=== PATIENT | male | born 1940 | race African-American/Black ===

== ENCOUNTER 2017-10-03 14:06 | Emergency (ER) | payer MEDICARE ==
[~2017-10-03] VITALS: Ht 190.5 cm; Wt 90.4 kg
[~2017-10-03 14:06] MED LIST changes: -ISOS1POW2 PO
[2017-10-03 14:55] LABS: HEMATOCRIT 34.7 % (39.2-51.8); HEMOGLOBIN 11.7 g/dL (13.7-18.0); WHITE BLOOD COUNT 6.1 x10^3/uL (3.4-10)
[2017-10-03 15:07] LABS: BLOOD UREA NITROGEN 18 mg/dL (7-18)
[2017-10-03] MEDS ORDERED: ISOS1POW2 PO (15:27)
[2017-10-03 15:43] VITALS: BP 162/69
== END 2017-10-03 16:28 | disposition home or self-care (01) ==
LOC: ED 15:45
DX: M54.12 Radiculopathy, cervical region (principal); E78.5 Hyperlipidemia, unspecified; K21.9 Gastro-esophageal reflux disease without esophagitis; M19.90 Unspecified osteoarthritis, unspecified site; I11.9 Hypertensive heart disease without heart failure; I25.10 Atherosclerotic heart disease of native coronary artery without angina pectoris; Z85.46 Personal history of malignant neoplasm of prostate
CPT/HCPCS: 36415; 80048; 82040; 82330; 85025; 99284

== ENCOUNTER → 2017-10-03 | Outpatient (CLI) | payer MEDICARE ==
[~2017-10-03] MED LIST: AMLO10TA2 PO; AMLODIPINE PO; ANTIINFLAMMATORY; APIX5TAB PO; ASPI-621 PO; ASPI325T17 PO; ATOR20TA PO; CLON-364 PO; DEXL30CA2 PO; DICL100T4 PO; DOCU-131 PO; FERR325T18 PO; HYDR-3237 PO; ISOS1POW2 PO; ISOS30TA PO; LOSA25TA2 PO; METH10TA6 PO; METH500T7 PO; METO50TA82 PO; MORP-52 PO; NITR0.4T SL; TICA90TA PO
[2017-10-03 14:04] LABS: HEMATOCRIT 35.5 % (39.2-51.8); HEMOGLOBIN 11.9 g/dL (13.7-18.0); WHITE BLOOD COUNT 6.4 x10^3/uL (3.4-10)
[2017-10-03 14:16] LABS: ASPARTATE AMINO TRANSFERASE 14 U/L (15-37); BLOOD UREA NITROGEN 18 mg/dL (7-18)
== END | disposition home or self-care (01) ==
LOC: LAB 13:51
PROVIDERS: ATTEND Internal Medicine
DX: E78.2 Mixed hyperlipidemia (principal); I25.10 Atherosclerotic heart disease of native coronary artery without angina pectoris; I10 Essential (primary) hypertension
CPT/HCPCS: 36415; 80053; 80061; 85025

== ENCOUNTER 2017-10-22 10:15 | Inpatient (IN) | payer MEDICARE ==
[~2017-10-22] VITALS: Ht 182.9 cm; Wt 92.1 kg
[~2017-10-22 10:15] MED LIST changes: +ISOS1POW2 PO
[2017-10-22 11:04] LABS: HEMATOCRIT 34.4 % (39.2-51.8); HEMOGLOBIN 11.4 g/dL (13.7-18.0); WHITE BLOOD COUNT 4.4 x10^3/uL (3.4-10)
[2017-10-22 11:14] LABS: BLOOD UREA NITROGEN 19 mg/dL (7-18)
[2017-10-22 11:32] LABS: IS PT STATUS REG ER OR PRE ER? YES
[2017-10-22] MEDS ORDERED: GADOBUTROL 10 MMOL/10 ML PFS ONE (11:45)
[2017-10-22] MEDS ORDERED: LEVETIRACETAM 1,000 MG in SODIUM CHLORIDE 0.9% 100 ML IV ONE (13:00)
[2017-10-22] MEDS ORDERED: DEXAMETHASONE 4 MG/ML, 1ML IVPush ONE (13:00)
[2017-10-22] MEDS ORDERED: DEXAMETHASONE 4 MG/ML, 5ML ONE (13:29)
[2017-10-22] MEDS ORDERED: ENOXAPARIN 40 MG/0.4 ML SQ SCH (14:30)
[2017-10-22] MEDS ORDERED: ONDANSETRON ODT 4 MG PO PRN (14:30)
[2017-10-22] MEDS ORDERED: ONDANSETRON 2MG/ML, 2ML IVPush PRN (14:30)
[2017-10-22] MEDS ORDERED: GUAIFENESIN/DM 200-20MG, 10ML UDC PO PRN (14:30)
[2017-10-22] MEDS ORDERED: POLYETHYLENE GLYCOL 17 GM PACKET PO PRN (14:30)
[2017-10-22] MEDS ORDERED: morphine SULFATE 10 MG/ML, 1ML IVPush PRN (14:30)
[2017-10-22] MEDS ORDERED: LABETALOL 5MG/ML, 20ML IVPush PRN (14:30)
[2017-10-22] MEDS ORDERED: HYDROcodone/APAP 5/325 TABLET PO PRN (14:30)
[2017-10-22 14:53] VITALS: BP 149/92
[2017-10-22] MEDS: SODIUM CHLORIDE 0.9% 1,000 ML IV SCH (15:21)
[2017-10-22] MEDS: DEXAMETHASONE 4 MG/ML, 1ML IVPush SCH ×2 (17:03→23:17)
[2017-10-22 18:45] VITALS: BP 167/77
[2017-10-22] MEDS: DOCUSATE 100 MG CAPSULE PO SCH (20:50)
[2017-10-22] MEDS: METOPROLOL TARTRATE 50 MG TABLET PO SCH (20:50)
[2017-10-22] MEDS: APIXABAN 5 MG TABLET PO SCH (20:52)
[2017-10-22] MEDS ORDERED: LEVETIRACETAM 100 MG/ML, 5ML IV SCH (21:00)
[2017-10-23 00:58] VITALS: BP 152/85
[2017-10-23] MEDS: LEVETIRACETAM 500 MG in SODIUM CHLORIDE 0.9% 100 ML IV SCH ×2 (01:40→13:32)
[2017-10-23] MEDS: DEXAMETHASONE 4 MG/ML, 1ML IVPush SCH ×4 (05:09→23:06)
[2017-10-23 06:44] VITALS: BP 178/80
[2017-10-23] MEDS: SODIUM CHLORIDE 0.9% 1,000 ML IV SCH ×2 (08:19→17:04)
[2017-10-23] MEDS: DOCUSATE 100 MG CAPSULE PO SCH ×2 (08:19→20:56)
[2017-10-23] MEDS: METOPROLOL TARTRATE 50 MG TABLET PO SCH ×2 (08:20→20:57)
[2017-10-23] MEDS: PANTOPROZOLE 40MG TABLET PO SCH (08:20)
[2017-10-23] MEDS: APIXABAN 5 MG TABLET PO SCH (08:20)
[2017-10-23] MEDS: SENNA/DOCUSATE TABLET PO SCH (08:23)
[2017-10-23] MEDS: DIPHENHYDRAMINE 25 MG CAPSULE PO PRN (10:00)
[2017-10-23] MEDS ORDERED: DIPHENHYDRAMINE 25 MG CAPSULE ONE (10:30)
[2017-10-23 11:16] LABS: ASPARTATE AMINO TRANSFERASE 12 U/L (15-37); BLOOD UREA NITROGEN 28 mg/dL (7-18)
[2017-10-23 11:24] LABS: HEMOGLOBIN 11.8 g/dL (13.7-18.0); WHITE BLOOD COUNT 14.8 x10^3/uL (3.4-10)
[2017-10-23 13:10] VITALS: BP 149/68
[2017-10-23] MEDS ORDERED: DIPHENHYDRAMINE 25 MG CAPSULE PO PRN (17:00)
[2017-10-23] MEDS ORDERED: MAGNESIUM SULFATE PMX 2GM/50ML 50 ML IV ONE (18:00)
[2017-10-23] MEDS: HEPARIN 5,000 UNITS/ML, 1ML SQ SCH (18:05)
[2017-10-23 18:31] LABS: IS PT STATUS REG ER OR PRE ER? NO
[2017-10-23 20:30] VITALS: BP 144/73
[2017-10-23 23:42] LABS: IS PT STATUS REG ER OR PRE ER? NO
[2017-10-24 01:09] VITALS: BP 158/87
[2017-10-24] MEDS: HEPARIN 5,000 UNITS/ML, 1ML SQ SCH ×3 (01:30→17:37)
[2017-10-24] MEDS: LEVETIRACETAM 500 MG in SODIUM CHLORIDE 0.9% 100 ML IV SCH ×2 (01:30→13:50)
[2017-10-24 04:53] LABS: HEMATOCRIT 33.4 % (39.2-51.8); HEMOGLOBIN 11.1 g/dL (13.7-18.0); WHITE BLOOD COUNT 16.4 x10^3/uL (3.4-10)
[2017-10-24 05:01] LABS: IS PT STATUS REG ER OR PRE ER? NO
[2017-10-24] MEDS: DEXAMETHASONE 4 MG/ML, 1ML IVPush SCH ×4 (05:02→23:09)
[2017-10-24 05:05] LABS: ASPARTATE AMINO TRANSFERASE 23 U/L (15-37); BLOOD UREA NITROGEN 30 mg/dL (7-18)
[2017-10-24 06:54] VITALS: BP 161/82
[2017-10-24] MEDS ORDERED: SODIUM CHLORIDE 0.9% 1,000 ML IV SCH (07:30)
[2017-10-24] MEDS ORDERED: REGADENOSON 0.4 MG/5 ML SYRINGE ONE (08:07)
[2017-10-24] MEDS ORDERED: hydrALAzine 20 MG/ML, 1ML ONE (10:08)
[2017-10-24] MEDS ORDERED: hydrALAzine 20 MG/ML, 1ML IV PRN (10:30)
[2017-10-24 11:28] VITALS: BP 159/83
[2017-10-24] MEDS: SENNA/DOCUSATE TABLET PO SCH (11:29)
[2017-10-24] MEDS: DOCUSATE 100 MG CAPSULE PO SCH ×2 (11:30→23:09)
[2017-10-24] MEDS: PANTOPROZOLE 40MG TABLET PO SCH (11:30)
[2017-10-24] MEDS: AMLODIPINE 5 MG TABLET PO SCH (11:30)
[2017-10-24 13:12] VITALS: BP 167/76
[2017-10-24 19:10] VITALS: BP 159/72
[2017-10-24] MEDS: METOPROLOL TARTRATE 25 MG TABLET PO SCH (23:09)
[2017-10-25 01:20] VITALS: BP 164/65
[2017-10-25] MEDS: LEVETIRACETAM 500 MG in SODIUM CHLORIDE 0.9% 100 ML IV SCH ×2 (01:46→15:00)
[2017-10-25] MEDS: HEPARIN 5,000 UNITS/ML, 1ML SQ SCH ×3 (01:46→16:58)
[2017-10-25] MEDS: DEXAMETHASONE 4 MG/ML, 1ML IVPush SCH ×4 (06:10→23:50)
[2017-10-25 07:33] VITALS: BP 161/83
[2017-10-25] MEDS: AMLODIPINE 5 MG TABLET PO SCH (08:04)
[2017-10-25] MEDS: DOCUSATE 100 MG CAPSULE PO SCH ×2 (08:04→21:08)
[2017-10-25] MEDS: SENNA/DOCUSATE TABLET PO SCH (08:04)
[2017-10-25] MEDS: METOPROLOL TARTRATE 25 MG TABLET PO SCH ×2 (08:05→21:00)
[2017-10-25 08:37] LABS: HEMATOCRIT 34.4 % (39.2-51.8); HEMOGLOBIN 11.4 g/dL (13.7-18.0); WHITE BLOOD COUNT 14.1 x10^3/uL (3.4-10)
[2017-10-25 08:48] LABS: BLOOD UREA NITROGEN 30 mg/dL (7-18)
[2017-10-25] MEDS: PANTOPROZOLE 40MG TABLET PO SCH (09:48)
[2017-10-25 13:46] VITALS: BP 172/81
[2017-10-25 14:26] VITALS: BP 156/70
[2017-10-25 19:10] VITALS: BP 158/78
[2017-10-26 01:12] VITALS: BP 171/81
[2017-10-26] MEDS: LEVETIRACETAM 500 MG in SODIUM CHLORIDE 0.9% 100 ML IV SCH ×2 (02:12→14:03)
[2017-10-26] MEDS: DEXAMETHASONE 4 MG/ML, 1ML IVPush SCH ×3 (04:52→16:07)
[2017-10-26 04:56] LABS: HEMATOCRIT 33.9 % (39.2-51.8); HEMOGLOBIN 11.2 g/dL (13.7-18.0); WHITE BLOOD COUNT 11.1 x10^3/uL (3.4-10)
[2017-10-26 05:05] LABS: BLOOD UREA NITROGEN 25 mg/dL (7-18)
[2017-10-26 07:45] VITALS: BP 187/80
[2017-10-26 07:47] VITALS: BP 182/86
[2017-10-26] MEDS: D5%-0.45% NACL 1,000 ML IV SCH (08:04)
[2017-10-26] MEDS: AMLODIPINE 5 MG TABLET PO SCH (08:09)
[2017-10-26] MEDS: DOCUSATE 100 MG CAPSULE PO SCH ×2 (08:09→21:00)
[2017-10-26] MEDS: SENNA/DOCUSATE TABLET PO SCH (08:09)
[2017-10-26] MEDS: PANTOPROZOLE 40MG TABLET PO SCH (08:10)
[2017-10-26] MEDS: METOPROLOL TARTRATE 25 MG TABLET PO SCH (08:10)
[2017-10-26] MEDS: LISINOPRIL 10 MG TABLET PO SCH (10:14)
[2017-10-26] MEDS: ISOSORBIDE MONONITRATE ER 30 MG TABLET PO SCH (10:14)
[2017-10-26 14:08] VITALS: BP 154/77
[2017-10-26] MEDS: DIPHENHYDRAMINE 25 MG CAPSULE PO PRN (16:15)
[2017-10-26] MEDS ORDERED: GADOBUTROL 10 MMOL/10 ML PFS ONE (16:40)
[2017-10-26] MEDS ORDERED: FENTANYL PF 250 MCG/5ML ONE (18:43)
[2017-10-26] MEDS ORDERED: PROPOFOL 10 MG/ML, 20ML ONE (18:44)
[2017-10-26] MEDS ORDERED: ROCURONIUM 10 MG/ML,10ML ONE (18:44)
[2017-10-26] MEDS ORDERED: GLYCOPYRROLATE 0.4 MG/2 ML, 2ML ONE ×2 (18:45→22:38)
[2017-10-26] MEDS ORDERED: NEOSTIGMINE 1 MG/ML, 10ML ONE (18:45)
[2017-10-26] MEDS ORDERED: CEFAZOLIN 1,000 MG ONE ×2 (18:54)
[2017-10-26] MEDS ORDERED: SODIUM CHLORIDE 0.9% PF 10ML ONE (18:54)
[2017-10-26] MEDS ORDERED: LABETALOL 5MG/ML, 20ML IV PRN (20:00)
[2017-10-26] MEDS ORDERED: hydrALAzine 20 MG/ML, 1ML IV PRN (20:00)
[2017-10-26] MEDS ORDERED: OXYcodone 5 MG/5 ML ORAL.SOL UDC PO PRN (20:00)
[2017-10-26] MEDS ORDERED: ONDANSETRON 2MG/ML, 2ML IVPush PRN (20:00)
[2017-10-26] MEDS ORDERED: MEPERIDINE/PF 25MG/0.5ML IVPush PRN (20:00)
[2017-10-26] MEDS ORDERED: HYDROmorphone 1 MG/ML, 1ML IV PRN (20:00)
[2017-10-26] MEDS ORDERED: PROMETHAZINE 25 MG/ML, 1ML IV PRN (20:00)
[2017-10-26] MEDS ORDERED: BUPIVACAINE/PF 0.5% ONE (20:07)
[2017-10-26] MEDS ORDERED: BACITRACIN 50,000 UNIT ONE (20:08)
[2017-10-26] MEDS ORDERED: EPINEPHRINE 1 MG/ML, 1ML ONE (20:08)
[2017-10-26] MEDS ORDERED: THROMBIN 5,000 UNIT VIAL TP ONE (20:08)
[2017-10-26] MEDS ORDERED: BACITRACIN OINT 500U/GM, 15 GM ONE (20:08)
[2017-10-26] MEDS ORDERED: OXYcodone 5 MG/5 ML ORAL.SOL UDC ONE (22:22)
[2017-10-26] MEDS ORDERED: FENTANYL PF 100 MCG/2ML ONE (22:22)
[2017-10-26] MEDS: FENTANYL PF 100 MCG/2ML IV PRN ×2 (22:25→22:53)
[2017-10-26] MEDS ORDERED: hydrALAzine 20 MG/ML, 1ML ONE (22:38)
[2017-10-27] MEDS: METOPROLOL TARTRATE 25 MG TABLET PO SCH (00:02)
[2017-10-27] MEDS ORDERED: HYDROcodone/APAP 5/325 TABLET PO PRN (00:27)
[2017-10-27] MEDS: DEXAMETHASONE 4 MG/ML, 1ML IVPush SCH ×5 (00:58→23:48)
[2017-10-27] MEDS: LEVETIRACETAM 500 MG in SODIUM CHLORIDE 0.9% 100 ML IV SCH ×2 (02:14→13:14)
[2017-10-27] MEDS: D5%-0.45% NACL 1,000 ML IV SCH ×2 (02:14→23:48)
[2017-10-27 04:00] VITALS: BP 157/66
[2017-10-27 05:04] LABS: HEMATOCRIT 37.7 % (39.2-51.8); HEMOGLOBIN 12.5 g/dL (13.7-18.0); WHITE BLOOD COUNT 14.7 x10^3/uL (3.4-10)
[2017-10-27 05:05] LABS: BLOOD UREA NITROGEN 29 mg/dL (7-18)
[2017-10-27 05:08] LABS: ASPARTATE AMINO TRANSFERASE 32 U/L (15-37)
[2017-10-27] MEDS: AMLODIPINE 5 MG TABLET PO SCH (08:45)
[2017-10-27] MEDS: DOCUSATE 100 MG CAPSULE PO SCH ×2 (08:45→21:13)
[2017-10-27] MEDS: LISINOPRIL 10 MG TABLET PO SCH (08:45)
[2017-10-27] MEDS: PANTOPROZOLE 40MG TABLET PO SCH (08:45)
[2017-10-27] MEDS: ISOSORBIDE MONONITRATE ER 30 MG TABLET PO SCH (08:45)
[2017-10-27] MEDS: ACETAMINOPHEN 325 MG TABLET PO PRN ×3 (08:49→23:48)
[2017-10-27] MEDS: SENNA/DOCUSATE TABLET PO SCH (08:50)
[2017-10-27 09:00] VITALS: BP 169/75
[2017-10-27 14:27] VITALS: BP 137/73
[2017-10-27 18:55] VITALS: BP 114/56
[2017-10-28] MEDS: LEVETIRACETAM 500 MG in SODIUM CHLORIDE 0.9% 100 ML IV SCH ×2 (02:37→13:54)
[2017-10-28 02:39] VITALS: BP 126/55
[2017-10-28 06:23] LABS: BLOOD UREA NITROGEN 32 mg/dL (7-18)
[2017-10-28] MEDS: DEXAMETHASONE 4 MG/ML, 1ML IVPush SCH ×3 (06:27→18:10)
[2017-10-28 06:30] LABS: HEMOGLOBIN 11.4 g/dL (13.7-18.0); WHITE BLOOD COUNT 11.8 x10^3/uL (3.4-10)
[2017-10-28 07:08] VITALS: BP 158/85
[2017-10-28] MEDS: SENNA/DOCUSATE TABLET PO SCH (08:40)
[2017-10-28] MEDS: DOCUSATE 100 MG CAPSULE PO SCH ×2 (08:42→19:58)
[2017-10-28] MEDS: ISOSORBIDE MONONITRATE ER 30 MG TABLET PO SCH (08:42)
[2017-10-28] MEDS: ACETAMINOPHEN 325 MG TABLET PO PRN ×2 (08:43→16:43)
[2017-10-28] MEDS: PANTOPROZOLE 40MG TABLET PO SCH (08:43)
[2017-10-28] MEDS: LISINOPRIL 10 MG TABLET PO SCH (08:43)
[2017-10-28] MEDS: AMLODIPINE 5 MG TABLET PO SCH (08:43)
[2017-10-28 12:58] VITALS: BP 108/57
[2017-10-28 19:29] VITALS: BP 133/53
[2017-10-28] MEDS: D5%-0.45% NACL 1,000 ML IV SCH (19:45)
[2017-10-29] MEDS: DEXAMETHASONE 4 MG/ML, 1ML IVPush SCH ×4 (00:19→18:11)
[2017-10-29 00:51] VITALS: BP 155/77
[2017-10-29] MEDS: LEVETIRACETAM 500 MG in SODIUM CHLORIDE 0.9% 100 ML IV SCH ×2 (01:59→13:58)
[2017-10-29 05:05] LABS: HEMATOCRIT 32.5 % (39.2-51.8); HEMOGLOBIN 10.7 g/dL (13.7-18.0); WHITE BLOOD COUNT 13.2 x10^3/uL (3.4-10)
[2017-10-29 05:22] LABS: BLOOD UREA NITROGEN 30 mg/dL (7-18)
[2017-10-29 07:41] VITALS: BP 177/78
[2017-10-29] MEDS: AMLODIPINE 5 MG TABLET PO SCH (08:12)
[2017-10-29] MEDS: PANTOPROZOLE 40MG TABLET PO SCH (08:12)
[2017-10-29] MEDS: ISOSORBIDE MONONITRATE ER 30 MG TABLET PO SCH (08:12)
[2017-10-29] MEDS: SENNA/DOCUSATE TABLET PO SCH (08:12)
[2017-10-29] MEDS: LISINOPRIL 10 MG TABLET PO SCH (08:13)
[2017-10-29] MEDS: DOCUSATE 100 MG CAPSULE PO SCH ×2 (08:13→21:12)
[2017-10-29] MEDS: ACETAMINOPHEN 325 MG TABLET PO PRN ×2 (09:29→18:35)
[2017-10-29 12:16] VITALS: BP 153/63
[2017-10-29] MEDS: ENOXAPARIN 40 MG/0.4 ML SQ SCH (14:00)
[2017-10-29] MEDS: D5%-0.45% NACL 1,000 ML IV SCH (16:07)
[2017-10-29 19:04] VITALS: BP 152/74
[2017-10-30] MEDS: DEXAMETHASONE 4 MG/ML, 1ML IVPush SCH ×4 (00:05→18:22)
[2017-10-30] MEDS: LEVETIRACETAM 500 MG in SODIUM CHLORIDE 0.9% 100 ML IV SCH ×2 (01:35→15:08)
[2017-10-30 01:38] VITALS: BP 160/70
[2017-10-30 04:16] LABS: HEMATOCRIT 32.2 % (39.2-51.8); HEMOGLOBIN 10.7 g/dL (13.7-18.0); WHITE BLOOD COUNT 14.1 x10^3/uL (3.4-10)
[2017-10-30 04:22] LABS: BLOOD UREA NITROGEN 27 mg/dL (7-18)
[2017-10-30 07:00] VITALS: BP 162/83
[2017-10-30] MEDS: AMLODIPINE 5 MG TABLET PO SCH (08:13)
[2017-10-30] MEDS: DOCUSATE 100 MG CAPSULE PO SCH ×2 (08:13→20:44)
[2017-10-30] MEDS: ISOSORBIDE MONONITRATE ER 30 MG TABLET PO SCH (08:14)
[2017-10-30] MEDS: PANTOPROZOLE 40MG TABLET PO SCH (08:14)
[2017-10-30] MEDS: SENNA/DOCUSATE TABLET PO SCH (08:14)
[2017-10-30] MEDS: LISINOPRIL 10 MG TABLET PO SCH (08:15)
[2017-10-30] MEDS: ACETAMINOPHEN 325 MG TABLET PO PRN ×2 (08:26→17:10)
[2017-10-30] MEDS: ENOXAPARIN 40 MG/0.4 ML SQ SCH (11:37)
[2017-10-30] MEDS: D5%-0.45% NACL 1,000 ML IV SCH (12:30)
[2017-10-30 14:24] VITALS: BP 129/71
[2017-10-30 19:16] VITALS: BP 157/79
[2017-10-31] MEDS: DEXAMETHASONE 4 MG/ML, 1ML IVPush SCH ×3 (00:53→11:59)
[2017-10-31] MEDS: LEVETIRACETAM 500 MG in SODIUM CHLORIDE 0.9% 100 ML IV SCH ×2 (00:53→14:10)
[2017-10-31 04:27] VITALS: BP 178/82
[2017-10-31 04:41] LABS: HEMATOCRIT 32.9 % (39.2-51.8); HEMOGLOBIN 10.9 g/dL (13.7-18.0); WHITE BLOOD COUNT 13.8 x10^3/uL (3.4-10)
[2017-10-31 04:45] LABS: BLOOD UREA NITROGEN 24 mg/dL (7-18)
[2017-10-31 07:44] VITALS: BP 172/85
[2017-10-31 07:45] VITALS: BP 173/81
[2017-10-31] MEDS: DOCUSATE 100 MG CAPSULE PO SCH ×2 (08:31→22:34)
[2017-10-31] MEDS: D5%-0.45% NACL 1,000 ML IV SCH (08:31)
[2017-10-31] MEDS: SENNA/DOCUSATE TABLET PO SCH (08:31)
[2017-10-31] MEDS: PANTOPROZOLE 40MG TABLET PO SCH (08:31)
[2017-10-31] MEDS: AMLODIPINE 5 MG TABLET PO SCH (08:31)
[2017-10-31] MEDS: ISOSORBIDE MONONITRATE ER 30 MG TABLET PO SCH (08:31)
[2017-10-31] MEDS: LISINOPRIL 10 MG TABLET PO SCH (08:31)
[2017-10-31] MEDS: ACETAMINOPHEN 325 MG TABLET PO PRN (11:56)
[2017-10-31 13:57] VITALS: BP 133/70
[2017-10-31] MEDS: ENOXAPARIN 40 MG/0.4 ML SQ SCH (14:15)
[2017-10-31] MEDS: DEXAMETHASONE 4 MG TABLET PO SCH ×2 (16:45→22:34)
[2017-10-31] MEDS ORDERED: METO25TA91 PO (18:15)
[2017-10-31] MEDS ORDERED: DEXA4TAB PO (18:15)
[2017-10-31] MEDS ORDERED: LEVE500T53 PO (18:15)
[2017-10-31] MEDS ORDERED: AMLO5TAB2 PO (18:15)
[2017-10-31 19:43] VITALS: BP 159/81
[2017-10-31] MEDS: LEVETIRACETAM 500 MG TABLET PO SCH (22:34)
[2017-10-31] MEDS: APIXABAN 5 MG TABLET PO SCH (22:34)
[2017-11-01 01:40] VITALS: BP 166/89
[2017-11-01 04:56] LABS: BLOOD UREA NITROGEN 25 mg/dL (7-18)
[2017-11-01 04:59] LABS: HEMATOCRIT 33.3 % (39.2-51.8); HEMOGLOBIN 10.9 g/dL (13.7-18.0); WHITE BLOOD COUNT 15.7 x10^3/uL (3.4-10)
[2017-11-01] MEDS: DEXAMETHASONE 4 MG TABLET PO SCH (06:18)
[2017-11-01 06:45] VITALS: BP 170/65
[2017-11-01] MEDS: LISINOPRIL 10 MG TABLET PO SCH (08:38)
[2017-11-01] MEDS: SENNA/DOCUSATE TABLET PO SCH (08:38)
[2017-11-01] MEDS: APIXABAN 5 MG TABLET PO SCH (08:38)
[2017-11-01] MEDS: DOCUSATE 100 MG CAPSULE PO SCH (08:38)
[2017-11-01] MEDS: ISOSORBIDE MONONITRATE ER 30 MG TABLET PO SCH (08:38)
[2017-11-01] MEDS: AMLODIPINE 5 MG TABLET PO SCH (08:38)
[2017-11-01] MEDS: PANTOPROZOLE 40MG TABLET PO SCH (08:38)
[2017-11-01] MEDS: LEVETIRACETAM 500 MG TABLET PO SCH (08:38)
[2017-11-01] MEDS: ACETAMINOPHEN 325 MG TABLET PO PRN (09:34)
== END 2017-11-01 11:02 | disposition home or self-care (01) | DRG 25 ==
LOC: ED 10:20 → EDIP 12:55 → 3NW 14:47 → CCU 10-26 23:20 → 3NW 10-27 14:14
PROVIDERS: ADMIT Hospitalist; ATTEND Hospitalist
PROC: 00B70ZX Excision of Cerebral Hemisphere, Open Approach, Diagnostic (ICD-10-PCS; principal; 2017-10-26 20:00)
DX: C71.9 Malignant neoplasm of brain, unspecified (principal); G93.6 Cerebral edema; C79.51 Secondary malignant neoplasm of bone; I11.0 Hypertensive heart disease with heart failure; D68.59 Other primary thrombophilia; I50.30 Unspecified diastolic (congestive) heart failure; I48.91 Unspecified atrial fibrillation; G40.109 Localization-related (focal) (partial) symptomatic epilepsy and epileptic syndromes with simple partial seizures, not intractable, without status epilepticus; D64.9 Anemia, unspecified; E78.5 Hyperlipidemia, unspecified; I25.10 Atherosclerotic heart disease of native coronary artery without angina pectoris; K21.9 Gastro-esophageal reflux disease without esophagitis; M16.0 Bilateral primary osteoarthritis of hip; Z79.01 Long term (current) use of anticoagulants; Z79.899 Other long term (current) drug therapy; Z85.46 Personal history of malignant neoplasm of prostate; Z87.891 Personal history of nicotine dependence; Z92.3 Personal history of irradiation; Z95.5 Presence of coronary angioplasty implant and graft; Z87.440 Personal history of urinary (tract) infections; Z90.49 Acquired absence of other specified parts of digestive tract; Z91.041 Radiographic dye allergy status; Z88.5 Allergy status to narcotic agent; Z91.013 Allergy to seafood
CPT/HCPCS: 36415; 70450; 70552; 70553; 71010; 71250; 74176; 78452; 80048; 80053; 82040; 83735; 83880; 84439; 84443; 84484; 85025; 85610; 85730; 87081; 88307; 88331; 93005; 93017; 93306; 96374; A9585; C1713; J0171; J0690; J1100; J1644; J1650; J1953; J2704; J2710; J2785; J3010; J3490; A4648; A9502; C9898; J0360; J3475; J7030; Q0163

== ENCOUNTER → 2017-11-30 | Outpatient (CLI) | payer MEDICARE ==
[~2017-11-30] MED LIST changes: +AMLO5TAB2 PO; +DEXA4TAB PO; +LEVE500T53 PO; +METO25TA91 PO
== END | disposition home or self-care (01) ==
LOC: ROC 13:17
PROVIDERS: ATTEND Radiology Radiation Oncology
DX: C71.9 Malignant neoplasm of brain, unspecified (principal); Z85.46 Personal history of malignant neoplasm of prostate
CPT/HCPCS: G0463